=== PATIENT | male | born 1975 | race Caucasian/White ===

== ENCOUNTER 2023-11-14 16:51 | Emergency (ER) | payer OTHER ==
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
[2023-11-14] MEDS: ACETAMINOPHEN TAB 500 MG TAB PO STA (17:48)
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
[2023-11-14 19:13] VITALS: BP 118/81; PULSE 63; RESP 16; TEMP 98.4
== END 2023-11-14 19:12 | disposition home or self-care (01) ==
LOC: EC 16:51
DX: M79.641 Pain in right hand (principal); M79.671 Pain in right foot; Z79.01 Long term (current) use of anticoagulants; Z86.718 Personal history of other venous thrombosis and embolism; V89.2XXA Person injured in unspecified motor-vehicle accident, traffic, initial encounter; Y92.410 Unspecified street and highway as the place of occurrence of the external cause
CPT/HCPCS: 70450; 99284